=== PATIENT | female | born 1945 | race Caucasian/White ===

== ENCOUNTER → 2017-10-27 09:56 | Outpatient (CLI) | payer MEDICARE, MEDICAID ==
[2017-10-27 11:16] LABS: ALBUMIN 3.7 g/dL (3.4-5.0); BILIRUBIN - DIRECT 0.15 mg/dL (0.00-0.30); BILIRUBIN - INDIRECT 0.55 mg/dL (0.00-1.00); BILIRUBIN - TOTAL 0.7 mg/dL (0.2-1.3); PROTEIN - SERUM 6.9 g/dL (6.4-8.2)
== END | disposition home or self-care (01) ==
LOC: D.US 08:00
PROVIDERS: Internal Medicine Gastroenterology
DX: K76.89 Other specified diseases of liver (principal); R10.9 Unspecified abdominal pain

== ENCOUNTER 2018-02-26 11:35 | Day surgery (SDC) | payer MEDICARE, MEDICAID ==
[~2018-02-26] VITALS: Ht 154.9 cm; Wt 47.7 kg
[2018-02-26 12:21] LABS: BASOPHILS 0.7 % (0-2); EOSINOPHILS 0.7 % (0-7); HEMOGLOBIN 15.2 g/dL (12-16); IMMATURE GRANULOCYTES 0.2 % (0-5); LYMPHOCYTES 27.5 % (15-50); MCH 31.2 pg (26.0-34.0); MCHC 34.5 g/dL (31.0-37.0); MCV 90.3 fL (80.0-100.0); MEAN PLATELET VOLUME 10.2 fL (7.4-10.4); MONOCYTES 6.4 % (2-11); NEUTROPHILS 64.5 % (40-80); PLATELET COUNT 255 10x3/uL (130-400); RBC 4.87 10x6/uL (4.00-5.40); WBC 5.6 10x3/uL (4.8-10.8)
[2018-02-26] MEDS ORDERED: XANAX0.5 MG PO (12:41)
[2018-02-26] MEDS ORDERED: REQUIP0.25 MG PO (12:42)
[2018-02-26] MEDS ORDERED: METOPROLOL TART50 MG PO (12:42)
[2018-02-26] MEDS ORDERED: ALTACE10 MG PO (12:42)
[2018-02-26] MEDS ORDERED: PRAVASTATIN TAB 10M (12:43)
[2018-02-26] MEDS ORDERED: ALBUTEROL SULF8.5 GM INH (12:43)
[2018-02-26 12:44] LABS: BILIRUBIN - TOTAL 0.83 mg/dL (0.2-1.3); CALCIUM 9.7 mg/dL (8.5-10.1); CARBON DIOXIDE 27.6 mmol/L (21.0-32.0); CREATININE - SERUM 0.8 mg/dL (0.6-1.3); POTASSIUM - SERUM 3.6 mmol/L (3.5-5.1); PROTEIN - SERUM 7.9 g/dL (6.4-8.2)
[2018-02-26] MEDS ORDERED: CHLORTHALIDONE25 MG PO (12:44)
[2018-02-26 13:01] VITALS: BP 184/90; Ht 154.9 cm; Wt 47.7 kg
--- NOTE | 2018-02-26 17:00 | NUR ---
1435 IV DISCONTINUED. CATHETER INTACT. NO BLEEDING AT SITE. BANDAID APPLIED. 1443 DR MCGREGOR HERE TO SEE PATIENT AND GIVE HER REPORT OF HER TEST. 1455 DISCHARGE INSTRUCTIONS GIVEN. PT EXPRESSES UNDERSTANDING OF DISCHARGE INSTRUCTIONS. SHE IS DRESSED AND READY TO GO HOME.
--- NOTE | 2018-03-06 15:41 | OP ---
PATIENT NAME: MANUEL PICHARDO MEDICAL RECORD: [id number] :43 LOCATION:[facility] ADMISSION DATE: SURGEON: JONATHAN MCGREGOR MD DATE OF OPERATION: 02/26/2018 PROCEDURE: Colonoscopy with biopsy and polypectomy. REFERRING PHYSICIAN: Dr. Analilia Almaraz INDICATIONS: Ms. Pichardo is a delightful 72-year-old woman with history of COPD, who has had symptoms of left lower quadrant pain, diarrhea, and hematochezia. Her diarrhea has improved. Rectal pain has likewise improved and she self-treated with wfop-emw-hkkgiea hemorrhoidal cream. She presents for outpatient colonoscopy. PREMEDICATIONS: Total IV anesthesia (propofol 120 mg). INSTRUMENT: Olympus video colonoscope, pediatric. PROCEDURE AND FINDINGS: After receiving informed consent, Ms. Pichardo was placed in left lateral decubitus position and sedated as per anesthesia. After achieving an adequate level of sedation, digital rectal exam was performed that showed few external hemorrhoidal tags. No fissures or fistulas, normal sphincter tone, and no palpable rectal masses. The colonoscope was introduced per rectally and advanced to the cecum. The cecum, IC valve, and appendiceal orifice were identified. As the colonoscope was withdrawn, careful inspection was made of the massey of the colon. Overall mucosa had normal vascular and fold pattern. There was minimal patchy erythema in the proximal ascending colon and biopsies were taken throughout the ascending colon to rule out microscopic colitis. A few diverticula were seen in the distal ascending and transverse colon. There was also moderate number of diverticula present in the sigmoid colon. In the rectum, were 2 polyps measuring 0.3-0.5 cm in size, sessile, removed with hot biopsy forcep technique. Retroflexion in the rectum showed mild internal hemorrhoids. Liquid was collected from the rectum for studies. A good prep was present. Ms. Pichardo tolerated the procedure well. No immediate complications. ASSESSMENT: 1. Minimal nonspecific colitis involving the ascending colon. Rule out microscopic colitis. 2. Qhws-ls-esqnigga pandiverticulosis coli. 3. Mild internal hemorrhoids. RECOMMENDATIONS: 1. Follow up histopathology. 2. High-fiber diet. 3. Surveillance colonoscopy in 5 years. TRANSINT:[id number] Voice Confirmation ID: [id number] DOCUMENT ID: [id number] OPERATIVE REPORT [id number] MANUEL PICHARDO JONATHAN MCGREGOR MD at 1541 CC: ANALILIA ALMARAZ [id number] DICTATION DATE: 02/26/18 1400 DITCH REPAIRER: 02/26/18 1743 [facility] [place] 02/26/18 [id number] [place] [address]
== END 2018-02-26 15:00 | disposition home or self-care (01) ==
LOC: D.OPS 11:35
PROVIDERS: Internal Medicine Gastroenterology
DX: K52.9 Noninfective gastroenteritis and colitis, unspecified (principal); D12.8 Benign neoplasm of rectum; K57.30 Diverticulosis of large intestine without perforation or abscess without bleeding; K64.8 Other hemorrhoids; K64.4 Residual hemorrhoidal skin tags; J44.9 Chronic obstructive pulmonary disease, unspecified; Z01.812 Encounter for preprocedural laboratory examination

== ENCOUNTER 2018-04-09 09:25 | Day surgery (SDC) | payer MEDICARE, MEDICAID ==
[~2018-04-09] VITALS: Ht 154.9 cm; Wt 48.6 kg
[~2018-04-09 09:25] MED LIST: ALBUTEROL SULF8.5 GM INH; ALTACE10 MG PO; CHLORTHALIDONE25 MG PO; METOPROLOL TART50 MG PO; PRAVASTATIN TAB 10M; REQUIP0.25 MG PO; XANAX0.5 MG PO
[2018-04-09 10:16] LABS: BASOPHILS 0.6 % (0-2); IMMATURE GRANULOCYTES 0.1 % (0-5); LYMPHOCYTES 21.8 % (15-50); MCH 31.1 pg (26.0-34.0); MCHC 34.1 g/dL (31.0-37.0); MCV 91.3 fL (80.0-100.0); MEAN PLATELET VOLUME 9.7 fL (7.4-10.4); MONOCYTES 7.6 % (2-11); NEUTROPHILS 68.9 % (40-80); PLATELET COUNT 252 10x3/uL (130-400); RBC 4.82 10x6/uL (4.00-5.40); RDW 14.2 % (11.5-14.5); WBC 6.8 10x3/uL (4.8-10.8)
[2018-04-09 11:56] VITALS: BP 129/78; Ht 154.9 cm; Wt 48.6 kg
--- NOTE | 2018-04-09 15:20 | NUR ---
1320-DR FINNEGAN ROUNDS TO REPORT FINDINGS. 1345-IV D/C 1355-D/C HOME VIA WHEELCHAIR.
--- NOTE | 2018-04-09 17:20 | OP ---
PATIENT NAME: MANUEL PCIHARDO MEDICAL RECORD: [id number] :43 LOCATION:[facility] ADMISSION DATE: SURGEON: JONATHAN MCGREGOR MD DATE OF OPERATION: 04/09/2018 PROCEDURE: EGD with biopsy. REFERRING PHYSICIAN: Dr. Jessica Almaraz. INDICATIONS: Ms. Pichardo is a delightful 72-year-old woman with a history of COPD and heartburn. She presents for outpatient EGD. PREMEDICATIONS: Total IV anesthesia (propofol 120 mg). INSTRUMENT: Olympus video gastroscope. PROCEDURE AND FINDINGS: After receiving informed consent, Ms. Pichardo's posterior pharynx was anesthetized with Cetacaine spray. She was placed in left lateral decubitus position and sedated as per anesthesia. After achieving an adequate level of sedation, gastroscope was introduced per orally and advanced to the duodenum without difficulty. The esophageal mucosa was without erythema, ulcers, strictures or masses. Normal down the GE junction. Small sliding type hiatal hernia was present. The mucosa of the cardia and fundus appeared normal. The mucosa of the mid body of the stomach through to the antrum was notable for diffuse erythema with a few brown pigment spots consistent with stigmata of bleeding. No active bleeding seen. Antral biopsies were obtained to rule out Helicobacter pylori. The pylorus was patent and competent. Duodenal mucosa was without erythema or ulcers, appeared normal to the second portion. Biopsies were taken from the second portion of duodenum to rule out celiac disease and as the gastroscope was withdrawn biopsies were taken from the distal third of the esophagus. Ms. Pichardo tolerated the procedure well, no immediate complications. ASSESSMENT: 1. Small sliding type hiatal hernia. 2. Kril-by-tlvhfoic distal gastritis with stigmata of bleeding. RECOMMENDATIONS: 1. Reflux precautions. 2. Follow up histopathology. 3. Prilosec 20 mg p.o. b.i.d. TRANSINT:[id number] Voice Confirmation ID: [id number] DOCUMENT ID: [id number] JONATHAN MCGREGOR MD at 1720 CC: JESSICA ALMARAZ [id number] DICTATION DATE: 04/09/18 1258 LACTATION SPECIALIST: 04/09/18 1314 [facility] 04/09/18 [id number] [place] [address]
== END 2018-04-09 13:55 | disposition home or self-care (01) ==
LOC: D.OPS 09:25
PROVIDERS: Internal Medicine Gastroenterology
DX: K29.70 Gastritis, unspecified, without bleeding (principal); K44.9 Diaphragmatic hernia without obstruction or gangrene; R12 Heartburn; J44.9 Chronic obstructive pulmonary disease, unspecified; Z01.812 Encounter for preprocedural laboratory examination

== ENCOUNTER → 2018-05-29 10:48 | Outpatient (CLI) | payer MEDICARE, MEDICAID ==
[2018-04-09 11:56] VITALS: BMI 20.2
== END | disposition home or self-care (01) ==
LOC: D.HCCARDIO 10:48
PROVIDERS: ATTEND Internal Medicine Cardiovascular Disease
DX: R06.02 Shortness of breath (principal)

== ENCOUNTER → 2020-06-19 09:09 | Outpatient (CLI) | payer MEDICARE, MEDICAID ==
[2018-04-09 11:56] VITALS: BMI 20.2
--- NOTE | ~2020-06-19 | EC ---
PATIENT:MANUEL PICHARDO DATE OF SERVICE: 06/19/20 SEX: F MEDICAL RECORD: [id number] DATE OF : 41 [facility]ATION[facility] AGE OF PATIENT: 75 ADMISSION DATE: 06/19/20 REFERRING PHYSICIAN: INTERPRETING PHYSICIAN: ELIZA PALOMINO MD ECHOCARDIOGRAM REPORT ECHO CHARGES 4 ECHO COMPLETE Date: 06/19/20 CLINICAL DIAGNOSIS: HEART MURMUR/ANGINA ECHOCARDIOGRAPHIC MEASUREMENTS (adult normal given) AC root (d.<3.7cm) 2.8 cm LV Septum d (<1.2 cm> 0.9 cm Valve Excursion 1.5 cm LV Septum (systole) 1.1 cm Left Atria (s.<4.0cm> 3.1 cm LVPW d(<1.2cm) 1.1 cm RV (d.<2.3cm) 2.9 cm LVPW (sytole) 1.2 cm LV diastole(<5.6CM) 3.7 cm MV E-F(>70mm/sec) cm LV systole 2.2 cm LVOT Diameter 1.5 cm MV exc.(>10mm) 1.4 cm Est.ejection fraction (50-75%) % DOPPLER: LVIT cm/sec A 103.0cm/sec E 80.0 cm/sec LA cm/sec RVSP 39 mmHg LVOT 96 cm/sec AOP1/2T m/s Asc. Ao 159 cm/sec RVOT 52 cm/sec RA cm/sec PA 135 cm/sec AV Gradient Peak 10.12mmHg AV Mean 5.33 mmHg AV Area 1.2 cm MV Gradient Peak 4.21 mmHg MV Mean 1.37 mmHg MV Area cm COMMENTS: Floor Worker: 2 CY SMITH Polisher Numeral: 3 Dr. Cohen TAPE# PACS Pericardial Effusion N DATE OF SERVICE: Adequate 2D, color-flow imaging, spectral Doppler, and M-Mode. FINDINGS: No LVH. LV internal dimensions are normal. Wall motion is normal. EF is greater than or equal to 55%. Aortic valve is sclerotic. No evidence of stenosis by Doppler interrogation. Left atrium is normal. Mitral valve shows no prolapse. Trace MR. Right side is grossly normal. Mild TR. TRANSINT:[id number] Voice Confirmation ID: [id number] DOCUMENT ID: [id number] ECHOCARDIOGRAM REPORT [id number] MANUEL PICHARDO GREGORY A MD CC: [id number] DICTATION DATE: 06/20/20 1447 CITY PLANNER: 06/20/202027 [facility] CLI 06/19/20 [id number] [place] [address]
== END | disposition home or self-care (01) ==
LOC: D.HCCECHO 09:09
PROVIDERS: ATTEND Internal Medicine Cardiovascular Disease
DX: R01.1 Cardiac murmur, unspecified (principal); I20.9 Angina pectoris, unspecified